=== PATIENT | female | born 1990 | race Caucasian/White ===

== ENCOUNTER → 2018-08-01 | Outpatient (CLI) | payer OTHER | LOC: COL.RAD 13:00 | DX: Z31.41 Encounter for fertility testing (principal) ==

== ENCOUNTER → 2020-01-22 | Outpatient (CLI) | payer OTHER | LOC: DIA.ED 13:14 | DX: O24.419 Gestational diabetes mellitus in pregnancy, unspecified control (principal) | CPT/HCPCS: G0108 ==

== ENCOUNTER → 2020-02-17 | Outpatient (CLI) | payer OTHER | LOC: DIA.ED | DX: O24.419 Gestational diabetes mellitus in pregnancy, unspecified control (principal) | CPT/HCPCS: G0108 ==